=== PATIENT | female | born 1990 ===

== ENCOUNTER 2018-04-09 09:13 | Emergency (ER) | payer OTHER ==
--- NOTE | 2018-04-09 11:17 | OBDCSUM ---
Datetime: 04/09/2018 10:40 Discharged to, Provider: Home Follow up at, Provider: OBGYN Disch Instr Activity: Normal activity Disch Instr Diet: Restricted, specify Discharge Instructions, Provider: Routine instructions given Discharge Diagnosis, Provider: False Labor - Undelivered Discharge Time: 04/09/2018 10:45 Follow up in weeks, Provider: Next scheduled appointment Disch Referrals: None
--- NOTE | 2018-04-09 11:18 | OBHP ---
Datetime: 04/09/2018 10:47 IP Adm Impression: Term, intrauterine ; No Active Labor; Intact Membranes IP Admit Plan: Discharge home Admit Comment, IP Provider: Lenora Urena Patient is 38.2 weeks gestation ANAMIKA 04/22/18 consitant with LMP of 07/16/2017 first U/S done on 10/24/2017, she came in regarding slight clot like vaginal bleeding since last night and contract ions lasting a few seconds at a time spaced out 5 hours apart. She is a [facility] patient a nd sees Dr. Trena Pineda. She is having diarrhea, fatigue and swelling of the hands and feet. Nyasia ent claims good movement. PNC: Mother is negative for HIV, HBsAG, GBS, GC/CL, RPR, Antibiodies, Quantiferon Immune-Rubella Glucose 1hr test-85 ABO: O+ OBhX: first , last u/s 03/31 EFW 2948 planceta anterior Turner In Hx: unremarkable, denies STIs or abnormal Pap smears, last sexual activity 3 months ago PMHx- None Medications-Prenatals Allergies:NKDA FHx: None SurgHx: None Hosp: None Social: Denies tobacco, drug, alcohol use Impression IUP at 38.2 weeks r/o active labor Assement/Plan Performed digital vaginal exam noted effacement without dialation Monitored tracings tracing baseline 140's with good accelerations, moderate variability emi gory 1 observation labor precautions provided Jessica Blackmon MD - PGY 1 Reviewed with Attending Attending addendum: I saw and examined the patient myself today. I reviewed the record and it's current. I re viewed the resident note above and agree with findings and management. Patient is at 38w1d w/ bloody show, +fm, no lof, occasional ctx. On exam she is closed, effaced 70% -2 station with some bright red blood on exam. Category 1 tracing. A/P: stable, early labor, reassuring and maternal status -labor precautions given -cont weekly assessment by care provider - kickcounts discussed -dc home Destini Boles MD Pelvic Type - PN: Adequate Extremities - PN: Normal Abdomen - PN: Normal Lungs - PN: Normal Heart - PN: Normal HEENT - PN: Normal General - PN: Normal FHR - Baseline A Provider: 140 Membranes, Provider: Intact Contraction Comments Provider: None Gestation - Est Wks by US: 38.2 Pool Provider: Negative IP Hx Assessment: The History has been Reviewed and is Current EGA AdmitDate IP: 38.1 Vital Signs Provider: Reviewed; Within Normal Limits IP Chief Complaint: Vaginal bleeding NICHD Variability Prov Fetus A: Moderate 6-25bpm NICHD Accel Fetus A IP Provider: 15X15 FHR Category Provider Fetus A: Category I NICHD Decel Fetus A IP Provider: None Dilatation, Provider: 0 Effacement, Provider: 70 Station, Provider: -2 Genitourinary Exam: Normal
[2018-04-09 15:33] VITALS: BP 108/59; PULSE 88; O2SAT 97
== END 2018-04-09 10:45 | disposition home or self-care (01) ==
LOC: H.EROB2 09:13
DX: O26.853 Spotting complicating pregnancy, third trimester (principal); O47.1 False labor at or after 37 completed weeks of gestation; Z3A.38 38 weeks gestation of pregnancy

== ENCOUNTER 2018-04-13 02:56 | Inpatient (IN) | payer OTHER ==
[2018-04-13 03:39] VITALS: BMI 23.3
[2018-04-13] MEDS ORDERED: Lactated Ringer's 1,000 ML IV ONE (04:37)
[2018-04-13 05:54] VITALS: RESP 18; O2SAT 100
[2018-04-13 05:54] LABS: BASO # 0.1 K/uL (0.0-0.2); BASO % 0.9 % (0.0-2.0); EOS # 0.2 K/uL (0.0-0.7); EOS % 1.7 % (0.0-4.0); HEMOGLOBIN 12.7 g/dL (12.0-16.0); LYMPH # 1.3 K/uL (1.0-4.3); LYMPH % 12.5 % (20.0-40.0); MEAN CORPUSCULAR HEMOGLOBIN 30.9 pg (27.0-31.0); MEAN CORPUSCULAR HGB CONC 34.4 g/dL (33.0-37.0); MEAN PLATELET VOLUME 8.2 fl (7.2-11.7); MONO % 10.1 % (0.0-10.0); NEUT # 7.6 K/uL (1.8-7.0); NEUT % 74.8 % (50.0-75.0); RBC 4.12 Mil/uL (3.80-5.20); RED CELL DISTRIBUTION WIDTH 13.4 % (11.5-14.5); WHITE BLOOD COUNT 10.2 K/uL (4.8-10.8)
[2018-04-13] MEDS: Lactated Ringer's 1,000 ML IV SCH ×4 (06:00→10:00)
--- NOTE | 2018-04-13 07:56 | OBADHP ---
Datetime: 04/13/2018 04:13 Admit Comment, IP Provider: ANAMIKA: 04/22/2018 First u/s: 10/24/2017 LMP: 07/16/2017 PNP: Dr. Trena Colbert at [facility] Last visit: 27 y/o at 38.5wks is c/o contractions that began yesterday at 6pm. Since then, patient report s contractions have become more frequent. Patient denied any vaginal bleeding, fluid loss, and states movement is frequent. She was seen in ED here at [facility] 04/09/2018 with c/o clot-like vaginal blee ding. Patient was not found to be effaced, FHR was 140's at baseline with good variability. Patient was discharged with labor precautions. OBGYNhx: patient denied any complications during this as well as any hx PMH: none Familyhx: none Socialhx: no smoking, no EtOH Surghx: none Allergies: none Meds: vitamins ROS: Patient denied any dizziness, headache, blurred vision, cp, sob, n/v/d PE: Cardio: s1s2 auscultated, no murmurs Resp: breath sounds b/l, no adventitious sounds Abd: BS + Vag: mucus visualized, Ext: nontender A/P: 27 y/o at 38.5wks is c/o contractions that began yesterday at 6pm. Active Labor 1. Admit to unit. NPO. 2. FHR monitoring. 3. Epidural PRN. OB attending addendum: Patient seen and examined by me agree with above assessment and plan. Pelvic Type - PN: Adequate Extremities - PN: Normal Abdomen - PN: Normal Lungs - PN: Normal Heart - PN: Normal Neurologic - PN: Normal HEENT - PN: Normal General - PN: Normal Presentation-Admit: Vertex FHR - Baseline A Provider: 130 Membranes, Provider: Intact Vital Signs Provider: Reviewed IP Chief Complaint: Uterine contractions NICHD Variability Prov Fetus A: Moderate 6-25bpm FHR Category Provider Fetus A: Category I NICHD Decel Fetus A IP Provider: None Dilatation, Provider: 3cm Effacement, Provider: 60% Genitourinary Exam: Normal EGA AdmitDate IP: 38.5 IP Adm Impression: Term, intrauterine IP Admit Plan: Admit to unit; Initiate labor protocol Datetime: 04/09/2018 10:47 Contraction Comments Provider: None Gestation - Est Wks by US: 38.2 Pool Provider: Negative IP Hx Assessment: The History has been Reviewed and is Current NICHD Accel Fetus A IP Provider: [id number] Station, Provider: -2
[2018-04-13] MEDS ORDERED: Oxytocin 30 units/LR 500ML 30 UNITS/500 ML BAG IV ONE (08:02)
[2018-04-13] MEDS ORDERED: Fentanyl/Bupivacaine HCl 250 ML EPI ONE (08:11)
[2018-04-13] MEDS: Oxytocin 30 units/LR 500ML 30 U/500 ML BAG IV ONE ×2 (09:50→18:10)
--- NOTE | 2018-04-13 10:49 | OBPN ---
Datetime: 04/13/2018 09:30 IP Progress Impression: Normal progression of labor IP Informed Consent Obtain: Vaginal Delivery IP Procedures: Artificial ROM; Sterile Vag Exam IP Progress Plan: Continue present management Membranes, Provider: Ruptured Amniotic Fluid Color, Provider: Clear Contraction Comments Provider: q 3-6 mins FHR - Baseline A Provider: 150 IP Progress Note Comment: Patient comfortable s/p epidural VE=6/80/-1, AROM, clear FHR = 150 mod ismael, no accels no decels TOCO = ctxning q 3-6 mins A/P 1. Restart Pitocin for augmentation, pt now AROM as well 2. CEFM and TOCO 3. Re-evaluate as needed Vital Signs Provider: Reviewed; Within Normal Limits NICHD Variability Prov Fetus A: Moderate 6-25bpm Dilatation, Provider: 6 Effacement, Provider: 80 Station, Provider: -1 NICHD Decel Fetus A IP Provider: None Datetime: 04/13/2018 04:13 Presentation-Admit: Vertex FHR Category Provider Fetus A: Category I Datetime: 04/09/2018 10:47 Pool Provider: Negative Gestation - Est Wks by US: 38.2 NICHD Accel Fetus A IP Provider: [id number]
--- NOTE | 2018-04-13 11:55 | OBPN ---
Datetime: 04/13/2018 11:51 IP Progress Impression: Normal progression of labor IP Informed Consent Obtain: Vaginal Delivery IP Procedures: Sterile Vag Exam IP Progress Plan: Continue present management Contraction Comments Provider: q 3mins FHR - Baseline A Provider: 160 IP Progress Note Comment: Patient evaluated, comfortable VE=7/80/0 ZSS=301 mod ismael, +accels, no decels TOCO = ctxns q 3mins wth Pit @ 4 A/P 1. Continue Pitocin for augmentation. Patient progressing well in labor 2. CEFM and TOCO 3. Re-evaluate as needed Vital Signs Provider: Reviewed; Within Normal Limits NICHD Variability Prov Fetus A: Moderate 6-25bpm Dilatation, Provider: 7 Effacement, Provider: 80 Station, Provider: 0
[2018-04-13] MEDS ORDERED: Lidocaine 1% Inj (20ml) ONE (17:48)
[2018-04-13] MEDS ORDERED: Benzocaine/Menthol SPRAY TOP PRN ×2 (18:29→22:52)
[2018-04-13] MEDS ORDERED: Oxycodone/Acetaminophen 5/325 mg Tab PO PRN ×2 (18:29→22:52)
--- NOTE | 2018-04-13 18:29 | OBDS ---
MATERNAL INFORMATION Provider Comments: of live female over intact perineum 7lbs 14 oz, 9/9, in CAIT presentat ion, nuchal cord x 1 loose, terminal meconium followed by shoulders and rest of atraumatically , mouth and nose suctioned, cord clamped and cut, infant placed on mother's chest, cord blood obtaine d, placenta delivered manually, fundus firm, second degree laceration repaired with 2-0 vicryl rapide , pt tolerated procedure well, [id number] LABOR SUMMARY EDC: 04/22/2018 00:00 No. Babies in Womb: 1 Attempted: No Labor Anesthesia: Epidural LABOR INFORMATION Reason for Induction: Not Applicable Onset of Labor: 04/13/2018 07:00 Oxytocin: Augmentation Group B Beta Strep: Negative Antibiotics # of Doses: na Antibiotics Time of Last Dose: na Steroids Given: None Reason Steroids Not Administered: Not Applicable MEMBRANES Membranes Rupture Method: Artificial Rupture of Membranes: 04/13/2018 09:13 Amniotic Fluid Color: Clear Amniotic Fluid Amount: Scant Amniotic Fluid Odor: Normal IDENTIFICATION/MEDS BABY A ID Band Number: [id number]
[2018-04-14 06:45] LABS: BASO % 0.4 % (0.0-2.0); EOS # 0.1 K/uL (0.0-0.7); LYMPH # 1.8 K/uL (1.0-4.3); MEAN CORPUSCULAR HEMOGLOBIN 31.1 pg (27.0-31.0); MEAN CORPUSCULAR HGB CONC 34.5 g/dL (33.0-37.0); MEAN PLATELET VOLUME 7.8 fl (7.2-11.7); MONO # 1.2 K/uL (0.0-0.8); MONO % 9.6 % (0.0-10.0); NEUT # 9.6 K/uL (1.8-7.0); NRBC % 0.1 % (0.0-0.0); RBC 3.55 Mil/uL (3.80-5.20); WHITE BLOOD COUNT 12.8 K/uL (4.8-10.8)
[2018-04-14] MEDS: Multivitamin With Minerals Tab PO SCH (08:58)
[2018-04-14] MEDS ORDERED: Multivitamin With Minerals Tab PO SCH (09:00)
--- NOTE | 2018-04-14 09:46 | OBPPN ---
Datetime: 04/14/2018 08:33 PP Pain Prov: Within normal limits PP Nausea Prov: Denies PP Flatus Prov: No PP BM Prov: No PP Heart Prov: Normal PP Lungs Prov: Normal PP Abdomen/Uterus Prov: Normal PP Lochia Prov: Normal PP Impression Prov: Normal progression PP Plan Prov: Continue present management PP Progress Note Prov: 27 y/o s/p 04/13/2018 @11:21am, Female, did well overnight. Patient b reast and bottlefeeding. (-)flatus _ BM. Fundus at level of umbilicus, lochia like menses. Patient de nied n/v/d, cp or sob PE: well appearing female Cardio: s1 s2, no murmurs Resp: lungs clear b/l Abd: BS + Ext: nontender A/P:27 y/o s/p 04/13/2018 @11:21am, Female. 1. Breast feeding encouraged. 2. Ambulate as tolerated. 3. Ibuprofen for mild/moderate pain. 4. Anticipated DC 04/15 Case discussed with OB attending. Cass Lira PGY-1 OB Hospitalist on-call...On rounds I saw and examiend this patinet Agree with note MAHNDO Vital Signs Provider PP: Reviewed; Within Normal Limits
[2018-04-14] MEDS ORDERED: Simethicone 80 mg Chewtab PO PRN (22:30)
[2018-04-15] MEDS: Multivitamin With Minerals Tab PO SCH (09:32)
[2018-04-15 17:40] VITALS: BP 111/64; PULSE 82; TEMP 97.9
== END 2018-04-15 12:55 | disposition home or self-care (01) | DRG 775 ==
LOC: H.EROB2 02:56 → H.L&D 04:37 → H.OB/GYN 22:00
PROVIDERS: ADMIT Obstetrics & Gynecology; ATTEND Obstetrics & Gynecology
PROC: 10E0XZZ Delivery of Products of Conception, External Approach (ICD-10-PCS; principal; 2018-04-13)
PROC: 0KQM0ZZ Repair Perineum Muscle, Open Approach (ICD-10-PCS; 2018-04-13)
PROC: 10907ZC Drainage of Amniotic Fluid, Therapeutic from Products of Conception, Via Natural or Artificial Opening (ICD-10-PCS; 2018-04-13)
DX: O77.0 Labor and delivery complicated by meconium in amniotic fluid (principal); O69.81X0 Labor and delivery complicated by cord around neck, without compression, not applicable or unspecified; Z37.0 Single live birth; Z3A.38 38 weeks gestation of pregnancy